=== PATIENT | female | born 1985 | race Caucasian/White ===

== ENCOUNTER 2017-01-20 03:05 | Emergency (ER) | payer OTHER ==
[~2017-01-20] VITALS: Ht 165.1 cm; Wt 112.2 kg
[~2017-01-20 03:05] MED LIST: ABILIFY20 MG PO; ALPRAZOLAM0.5 MG PO; BIRTH CONTROL PATCH; CEFDINIR300 MG; CLEOCIN300 MG PO; CLINDAMYCIN HC300 MG PO; CYCLOBENZAPRINE10 MG PO; Cleocin PO; Colace PO; ENDOCET 5-3251 EACH PO; FLEXERIL10 MG PO; Feosol PO; HYDROCODON-ACE1 EAC7 PO; HYDROXYZINE HCL50 MG PO; IBUPROFEN800 MG PO; MOTRIN600 MG PO; Motrin PO; NAPROSYN500 MG PO; NATALCARE RX1 TABLE1 PO; NEURONTIN300 MG PO; NORCO 5/3251 TABLET PO; PERCOCET 5/31 TABLET PO; PERCOCET 7.51 TABLET PO; PREDNISONE10 MG PO; ULTRAM50 MG PO; XANAX0.5 MG PO; ZOLOFT25 MG PO
[2017-01-20] MEDS ORDERED: LIDODERM 5% P1 PATCH TD (05:47)
[2017-01-20] MEDS ORDERED: MOTRIN800 MG PO (05:47)
[2017-01-20 05:54] VITALS: BP 149/85
== END 2017-01-20 05:54 | disposition home or self-care (01) ==
LOC: EME 03:05
DX: S00.83XA Contusion of other part of head, initial encounter (principal); S00.81XA Abrasion of other part of head, initial encounter; S10.91XA Abrasion of unspecified part of neck, initial encounter; S10.93XA Contusion of unspecified part of neck, initial encounter; M54.9 Dorsalgia, unspecified; Y04.2XXA Assault by strike against or bumped into by another person, initial encounter; F17.200 Nicotine dependence, unspecified, uncomplicated
CPT/HCPCS: 70450; 72070; 72100; 99281; 99284

== ENCOUNTER 2017-09-10 04:27 | Emergency (ER) | payer OTHER ==
[~2017-09-10] VITALS: Ht 170.2 cm; Wt 109.7 kg
[~2017-09-10 04:27] MED LIST changes: +BACTRIM,SEPT1 TABLET PO; +LIDODERM 5% P1 PATCH TD; +MOTRIN800 MG PO
[2017-09-10 04:30] VITALS: BP 116/76
[2017-09-10] MEDS ORDERED: TRAMADOL HCL50 MG PO (20:48)
[2017-09-10] MEDS ORDERED: CLINDAMYCIN HC150 MG PO (20:48)
== END 2017-09-10 04:30 | disposition left against medical advice (07) ==
LOC: EME 04:27
DX: L98.9 Disorder of the skin and subcutaneous tissue, unspecified (principal); Z53.21 Procedure and treatment not carried out due to patient leaving prior to being seen by health care provider

== ENCOUNTER 2017-09-10 16:38 | Emergency (ER) | payer OTHER ==
[~2017-09-10] VITALS: Ht 170.2 cm; Wt 108.5 kg
[2017-09-10] MEDS ORDERED: TRAMADOL HCL50 MG PO (20:48)
[2017-09-10] MEDS ORDERED: CLINDAMYCIN HC150 MG PO (20:48)
[2017-09-10 21:03] VITALS: BP 100/57
== END 2017-09-10 21:05 | disposition home or self-care (01) ==
LOC: EME 16:38
DX: K04.7 Periapical abscess without sinus (principal); F17.200 Nicotine dependence, unspecified, uncomplicated; F32.9 Major depressive disorder, single episode, unspecified; F41.9 Anxiety disorder, unspecified; Z88.0 Allergy status to penicillin
CPT/HCPCS: 70487; J7040